=== PATIENT | female | born 1955 | race Caucasian/White ===

== ENCOUNTER 2018-10-16 05:55 | Inpatient (IN) ==
[2018-10-16] MEDS ORDERED: LIDOCAINE W/ SODIUM BICARB 0.5 ML SYR SUBD ONE (06:00)
[2018-10-16] MEDS ORDERED: Lactated Ringers 1,000 ML PRIMARY IV ONE ×2 (06:00→06:16)
[2018-10-16] MEDS ORDERED: Nasal Sanitizer POPSWAB ampule 3 AMP (Nozin) PREOP DOSE ENOS SCH (06:00)
[2018-10-16] MEDS ORDERED: Clindamycin 900mg (Premix) 900 MG/50 ML BAG IV ONE ×2 (06:00→06:16)
[2018-10-16] MEDS ORDERED: LIDOCAINE W/ SODIUM BICARB 0.5 ML SYR ONE (06:16)
[2018-10-16] MEDS ORDERED: Sodium Chloride 0.9% 0 ML IV ONE (06:16)
[2018-10-16] MEDS ORDERED: Vancomycin Inj 1gm vial ONE (06:16)
[2018-10-16] MEDS ORDERED: Sodium Chloride 0.9% 250 ML ONE ×2 (06:58→11:18)
[2018-10-16 07:39] LABS: BLOOD UREA NITROGEN 23 mg/dL (7-22); BUN/CREATININE RATIO 28.75 (6-20)
[2018-10-16] MEDS ORDERED: HYDROmorphone 2 MG/1 ML IVP PRN (07:40)
[2018-10-16] MEDS ORDERED: HYDROmorphone 2 MG/1 ML ONE ×3 (07:44→17:38)
[2018-10-16] MEDS: HYDROmorphone 2 MG/1 ML IVP PRN ×7 (07:45→17:54)
[2018-10-16] MEDS ORDERED: IPRATROPIUM/ALBUTEROL SULFATE 3 ML NEB NEB ONE (11:03)
[2018-10-16] MEDS ORDERED: fentaNYL Inj 250 MCG/5 ML VIAL ONE (11:12)
[2018-10-16] MEDS ORDERED: MIDAZOLAM 5 MG/1 ML ONE (11:12)
[2018-10-16] MEDS ORDERED: REMIFENTANIL HCL 2 MG VIAL IV ONE (11:13)
[2018-10-16] MEDS ORDERED: REMIFENTANIL 1 MG/1 ML IV ONE (11:13)
[2018-10-16] MEDS ORDERED: ROCURONIUM 10 MG/1 ML - 5 ML VIAL IVP ONE (11:13)
[2018-10-16] MEDS ORDERED: KETAMINE HCL 100 MG/2 ML SYRINGE IV ONE (11:14)
[2018-10-16] MEDS ORDERED: Sodium Chloride 0.9% vial 20 ML ONE (12:05)
[2018-10-16] MEDS ORDERED: BACITRACIN 50,000 UNIT VIAL IRRIG ONE (12:06)
[2018-10-16] MEDS ORDERED: BUPivacaine Inj 0.25% PF - 10ml vial ONE (12:12)
[2018-10-16] MEDS ORDERED: BUPIVACAINE 0.25% W/ EPI - 10 ML VIAL ONE (12:14)
[2018-10-16] MEDS ORDERED: ePHEDrine Inj 50 MG/ML AMP ONE (12:15)
[2018-10-16] MEDS ORDERED: PHENYLEPHRINE 10,000 MCG/1 ML VIAL ONE (12:22)
[2018-10-16] MEDS ORDERED: Propofol 1,000 MG/100 ML VIAL IV ONE (13:01)
[2018-10-16] MEDS ORDERED: Hetastarch 6% + NS 500 ML IV ONE (13:35)
--- NOTE | 2018-10-16 14:20 | CRNA.PROGR ---
Anesthesia Time - Procedure/Recovery Time Start Date: 10/16/18 End Date: 10/16/18 Anesthesia : Time In: 11:28 Anesthesia : Time Out: 16:57 Anesthesia : Total Time: 329 - Total Anesthesia Time Total Anesthesia Time (minutes): 329 - Other Weight: 71.214 kg Height: 5 ft 1 in Body Mass Index (BMI): 29.6 Physical Status: P2 (Tobacco) Anesthesia Type: General Anesthesia : ET (NIMS technique)
--- NOTE | 2018-10-16 17:02 | GEN.OPNOTE ---
Operative Note Surgery Date: 10/16/18 Preoperative Diagnosis: 1. Chronic neck pain. 2. Chronic right arm radicular symptoms. 3. Status post two remote anterior cervical discectomy and fusions with fusion of the C5-6 interspace. 4. Adjacent level degenerative disc disease at C4-5 and C6-7 with degenerative disc disease at C3-4, as well, with the degenerative disc disease at these levels being moderate in degree. 5. Marked facet arthropathy and hypertrophy at C2-3 on the left. 6. High-grade cervical central canal stenosis at C6-7 without cord compression. 7. Multilevel cervical neural foraminal stenosis. Postoperative Diagnosis: 1. Chronic neck pain. 2. Chronic right arm radicular symptoms. 3. Status post two remote anterior cervical discectomy and fusions with fusion of the C5-6 interspace. 4. Adjacent level degenerative disc disease at C4-5 and C6-7 with degenerative disc disease at C3-4, as well, with the degenerative disc disease at these levels being moderate in degree. 5. Marked facet arthropathy and hypertrophy at C2-3 on the left. 6. High-grade cervical central canal stenosis at C6-7 without cord compression. 7. Multilevel cervical neural foraminal stenosis. Procedure: 1.) C3-4 Anterior Cervical Discectomy with foraminotomies bilaterally and removal of the posterior longitudinal ligament for decompression of the cervical spinal canal and neuroforamin bilaterally. (CPT code: 89076). 2.) C4- 5 Anterior Cervical Discectomy with foraminotomies bilaterally and removal of the posterior longitudinal ligament for decompression of the cervical spinal canal and neuroforamin bilaterally. (CPT code: 58606). 3.) C6-7 Anterior Cervical Discectomy with foraminotomies bilaterally and removal of the posterior longitudinal ligament for decompression of the cervical spinal canal and neuroforamin bilaterally. (CPT code: 37395). 4.) Arthrodesis, anterior interbody technique, C3-4. (CPT code: 18506). 5.) Arthrodesis, anterior interbody technique, C4-5. (CPT code: 30941). 6.) Arthrodesis, anterior interbody technique, C6-7. (CPT code: 86823). 7.) Insertion of a 7mm x 14mm x 17mm 6-degree lordotic Tritanium C titanium anterior cervical cage into the C3-4 insterspace for fusion of the C3-4 interspace. (CPT code: 70471). 8.) Insertion of a 7mm x 14mm x 17mm 6-degree lordotic Tritanium C titanium anterior cervical cage into the C4-5 interspace for fusion of the C4-5 interspace. (CPT code: 17250). 9.) Insertion of a 7mm x 14mm x 17mm 6-degree lordotic Tritanium C titanium anterior cervical cage into the C6-7 interspace for fusion of the C6- 7 interspace. (CPT code: 07422). 10.) Anterior cervical plating, C3-C5. (CPT code: 77535). 11.) Anterior cervical plating, C6-C7. (CPT code: 55146). 12.) Use of 5cc of Cerapedics i-FACTOR peptide enhanced bone graft for filling of the anterior cervical cages (allograft). (CPT code: 31439). 13.) Use of the operative microscope for the microsurgical techniques used for the C3-4, C4-5, C6-7 discectomies. (CPT code: 80553). 14.) Use of intra-operative fluoroscopy for the localization of the correct surgical levels, confirmation of the final position of the intervertebral cages, and confirmation of final position of the anterior cervical hardware elements. 15.) Use of intra-operative neuromonitoring including free running EMG's, SSEP's, and MEP's. Surgeon: Will Castellon MD Donor Services Coordinator: NJ Tompkins Anesthesia Provider: Mariah Sibley CRNA Anesthesia Type: General Estimated Blood Loss (mL): 100 Fluids: See anesthesia record Pathology: None Indications: Ms. Page Strickland is a 63-year-old female status post a previous C5-6 anterior cervical discectomy and fusion performed in [place] in 1997 which was subsequently revised in 1998. She has had neck and right upper extremity symptoms for a while now. These have not improved with the passage of time or with nonoperative therapies. She had imaging studies that demonstrated adjacent level degenerative changes at C4-5 and C6-7 but with significant degenerative changes at C3-4, as well. We had discussed surgical treatment would entail a C3-4, C4-5, and C6-7 anterior cervical discectomy and fusion. Her chronic symptoms failed to durable improve with non-operative therapies. I recommended that she consider proceeding with a C3-4, C4-5, and C6-7 anterior cervical discectomy and fusion for durable improvement in her symptoms. She wished to proceed with surgical treatment. Findings: 1.) Cervical stenosis C6-7 2.) Cervical neuroforaminal stenosis, C3-4, C4-5, C6-7 Complications: None Operative Summary: Ms. Strickland was met in the preoperative area. Her surgical history and physical was performed earlier this morning in the pre-operative area. We reviewed the procedure to be performed and we were in agreement on the procedure to be performed and this matched what was written on the patient's consent form. Any questions that Ms. Strickland had were answered before she was taken back to the operating room suite. Ms. Strickland was brought back to the operating room suite. She was moved over onto the surgical bed in supine position. General anesthesia was induced by the anesthesia staff and she was intubated. A Lofton catheter was placed in her bladder for the procedure. She had pneumatic compression hose placed on her lower legs bilaterally. Her head was placed on a gel ring and rolled up surgical towels were placed in the intrascapular area and under her shoulders bilaterally. Her arms were gently tucked at her sides. All bony prominences were well padded. Her Lofton catheter was checked to be free from kinks. Her pneumatic compression hose were attached to a pneumatic compression devise. The C-arm fluoroscopy unit was used to help localize the skin incision for the approach to the intended surgical level. The skin was marked along the medial border of the sternocleidomastoid muscle with a skin marker. Ms. Strickland was prepped and draped in the usual and standard fashion. She was given 900 mg of Cleocin and 1 gram of vancomycin IV for perioperative antibiosis. A standard surgical timeout was performed identifying the correct patient, the correct procedure, and the correct equipment being available for the procedure. The intended skin incision was injected subcutaneously with quarter percent Marcaine with 1 in 200,000 epinephrine. The skin was incised with a 10 blade scalpel and all dermal and superficial bleeding points controlled with bipolar cautery. Dissection was continued down through the subcutaneous tissue to the level of the platysma muscle. The platysma muscle was incised with the Metzenbaum scissors in the direction of the skin incision. This allowed identification the medial border of the sternocleidomastoid muscle. Scar tissue from her previous C5-6 anterior cervical discectomy and fusion was encountered in the middle of the dissection. Further dissection identified the omohyoid muscle which was circumferentially dissected out, tagged with two 0-Silk suture and then cut with a Metzenbaum scissors with the muscle stumps retracted with snaps attached to the sutures. Continued dissection was performed medial to the sternocleidomastoid muscle in both a sharp and blunt fashion down to the pre-vertebral fascia. The carotid artery was palpated to be lateral to the dissection plane. Cloward hand-held retractors were used to retract and protect the soft tissues while the prevertebral fascia was dissected with a Kitner. Once the disc space became exposed a bent spinal needle was placed into the disc space and the level was localized as the C4-5 level, one of the intended surgical levels with lateral fluoroscopy. Continued dissection of the prevertebral fascia was performed exposing the C3, C4, C5, C6, and C7 vertebral bodies. The medial border of the longus coli muscle was dissected with Bovie cautery with an insulated tip turned down to a low setting from C3-C7 bilaterally. The hand-held Cloward retractors were then replaced with the Material Mixer self-retaining retractor system which was first placed at the C3-4 level to expose this level and protect the soft tissues at this level. A 12 mm distraction pin was placed into the C3 vertebral body and another was placed into the C4 vertebral body. The operative microscope was brought into the surgical field and used for microsurgical techniques used for the C3-4 discectomy. An annulotomy was performed with a 15 blade scalpel and disc material was removed with a pituitary rongeur. Additional disc and cartilaginous endplate was loosened in the disc space using a small straight curette with the fragments being removed with a pituitary rongeur. The high-speed listedplaces drill with a matchstick bit was used to perform arthrodesis/decortication of the C3 and C4 endplates preparing the endplates for fusion. The same drill with the same bit was used to drill away the prominent diffuse osteophytes along the posterior inferior aspect of the C3 vertebral body and the posterior superior aspect of C4 vertebral body as well as the uncovertebral joints bilaterally which were hypertrophied bilaterally. Foraminotomies were performed bilaterally with the same drill with same bit. A nerve hook was used to define the plane between the posterior longitudinal ligament and the dura. The posterior longitudinal ligament was completely rem mirtha with small Kerrison punches. The same instruments were used to extend the foraminotomies bilaterally that had been started with the high-speed drill with a matchstick bit. Excellent decompression of the spinal canal, neuroforamen, and exiting nerve roots was assured both by visual inspection as well as by palpation with a nerve hook underneath the vertebral bodies and out the neuroforamen bilaterally. The interspace was irrigated with bacitracin irrigation. FloSeal hemostatic agent was placed over all exposed dural elements. The interspace was sized the appropriate size anterior cervical cage. A 7 mm x 14 mm x 17 mm 6-degree lordotic Tritanium C titanium anterior cervical cage was selected and filled in the center with COCC BIO DBM Putty (allograft) and then inserted into the C3-4 interspace with the pilot control operator helper. The cage was gently countersunk with a bone tamp and mallet. The cage obtained good purchase between the C3 and C4 endplates. The final position of the cage was confirmed with lateral fluoroscopy. The C3 Mandare[place] distraction pin was removed and bony bleeding was controlled with FloSeal and a surgical madyson. The Material Mixer self-retaining retractor system was removed and placed across the C4-5 level for the exposure this level and the protection of the soft tissues at this level. The [place] distraction pin was placed into the C5 vertebral body. The operative microscope was used for this microsurgical techniques used for the C4-5 discectomy. An annulotomy was performed with a 15 blade scalpel and disc material was removed with a pituitary rongeur. Additional disc and cartilaginous endplate was loosened in the disc space with a small straight curette with the fragments being removed with a pituitary ronqeur. The high- speed [employer] Jose J drill with a matchstick bit was used to perform arthrodesis/decortication of the C4 and C5 endplates preparing the endplates for fusion. The same drill with the same bit was used to drill away the diffuse, prominent osteophytes along the posterior inferior aspect of the C4 vertebral body and the posterior superior aspect of the C5 vertebral body as well as to drill away the uncovertebral joint hypertrophy bilaterally. Foraminotomies were performed bilaterally with the same drill with the same bit. A nerve hook was used to define the plane between the posterior longitudinal ligament and the dura. The posterior longitudinal ligament was completely removed with small Kerrison punches. The same instruments were used to extend the foraminotomies bilaterally that had been started with the high-speed drill with a matchstick bit. Excellent decompression of the spinal canal, neuroforamen, and exiting nerve roots was assured both by visual inspection as well as by palpation with a nerve hook underneath the vertebral bodies and out the neuroforamen bilaterally. The interspace was irrigated with bacitracin irrigation. FloSeal hemostatic agent was placed over all exposed dural elements. The interspace was sized the appropriate size anterior cervical cage. A 7 mm x 14 mm x 17 mm 6-degree Tritanium C titanium anterior cervical cage was selected and filled in the center with COCC BIO DBM Putty (allograft) and then inserted into the C4-5 interspace with the pilot control operator helper. The cage was gently countersunk with a bone tamp and mallet. The cage obtained good purchase between the C4 and C5 endplates. The final position of the cage was confirmed with lateral fluoroscopy. The C4 Mandaree distraction pin was removed and bony bleeding was controlled with FloSeal and a surgical madyson. The Material Mixer self-retaining retractor system was removed and placed across the C6-7 level for the exposure this level and the protection of the soft tissues at this level. The Mand[place]e distraction pin was placed into the C7 vertebral body. The operative microscope was used for this microsurgical techniques used for the C6-7 discectomy. An annulotomy was performed with a 15 blade scalpel and disc material was removed with a pituitary rongeur. Additional disc and cartilaginous endplate was loosened in the disc space with a small straight curette with the fragments being removed with a pituitary ronqeur. The high- speed listedplaces drill with a matchstick bit was used to perform arthrodesis/decortication of the C6 and C7 endplates preparing the endplates for fusion. The same drill with the same bit was used to drill away the diffuse, prominent osteophytes along the posterior inferior aspect of the C6 vertebral body and the posterior superior aspect of the C7 vertebral body as well as to drill away the uncovertebral joint hypertrophy bilaterally. Foraminotomies were performed bilaterally with the same drill with the same bit. A nerve hook was used to define the plane between the posterior longitudinal ligament and the dura. The posterior longitudinal ligament was completely removed with small Kerrison punches. The same instruments were used to extend the foraminotomies bilaterally that had been started with the high-speed drill with a matchstick bit. Excellent decompression of the spinal canal, neuroforamen, and exiting nerve roots was assured both by visual inspection as well as by palpation with a nerve hook underneath the vertebral bodies and out the neuroforamen bilaterally. The interspace was irrigated with bacitracin irrigation. FloSeal hemostatic agent was placed over all exposed dural elements. The interspace was sized the appropriate size anterior cervical cage. A 7 mm x 14 mm x 17 mm 6-degree Tritanium C titanium anterior cervical cage was selected and filled in the center with COCC BIO DBM Putty (allograft) and then inserted into the C6-7 interspace with the pilot control operator helper. The cage was gently countersunk with a bone tamp and mallet. The cage obtained good purchase between the C6 and C7 endplates. The final position of the cage was confirmed with lateral fluoroscopy. The Mandaree distraction pins in the C6 and C7 vertebral bodies were removed. Bony bleeding was controlled FloSeal and surgical patties. The Material Mixer self- retaining retractor system was removed and placed in the center portion of the surgical dissection to provide the proper exposure needed for the instrumentation portion of the procedure. Any remaining C3, C4, C5, C6, and C7 anterior osteophytes were removed with the large Le[place]ell rongeur as well as with the high speed drill with the matchstick bit. The appropriate size anterior cervical plate were selected both by visual inspection as well as by lateral fluoroscopy. It was decided that because of t he C5-6 level being remotely fused with kyphotic angulation that a single anterior cervical plate would not fit across all of the surgical levels, so a two level plate was selected to plate from C3-C5 and a single level plate to plate the C6-7 level. A 2 level, 6 hole, 30 mm Radha Aviator titanium anterior cervical plate was selected and affixed to the C3 and C4 vertebral bodies using 4.0 mm x 14 mm variable angle titanium anterior cervical screws and to the C5 vertebral body using 4.0 mm x 14 mm fixed angle titanium screws. A 1 level, 4 hole, 14 mm [place] Aviator titanium anterior cervical plate was selected and affixed to the C6 and C7 vertebral bodies using 4.0 mm x 14 mm fixed angle titanium anterior cervical screws. All screws obtained good purchase in the vertebral body bone. The locking mechanism was then deployed at each level of each plate and visual inspection confirmed that the locking mechanism deployed across each of the screw heads at each level on each plate bilaterally. The Material Mixer self- retaining retractor system was removed from the surgical site. Final AP and lateral fluoroscopic images were obtained. The boswell of the dissection plane were inspected for any bleeding points. Any identified were coagulated with bipolar cautery. The surgical site was copiously irrigated with bacitracin irrigation allowing the irrigant to sit to again inspect for any bleeding points with none identified. A medium MATTHIAS drain was placed into the surgical site. The closure portion of the procedure was begun. The omohyoid muscle was re-approximated by the 0-Silk suture attached to the muscle stumps and by two interrupted 3-0 Vicryl suture. The platysmal muscle was reapproximated with 3-0 Vicryl suture in an interrupted fashion. The dermis and superficial subcutaneous tissue was reapproximated with 3-0 Vicryl suture in an inverted interrupted fashion. The final layer of closure was performed with 4-0 Monocryl in a running subcuticular fashion. The incision was cleansed with a bacitracin soaked sponge and dried with a sterile dry sponge. Steri-Strips were placed across the incision. The incision was dressed with a Covaderm dressing. The surgical drain was secured with suture. The drain site was dressed. All surgical drapes removed from Ms. Strickland. She was carefully moved over onto the PACU stretcher. She was awoken and extubated by the anesthesia staff. She was taken to the recovery room in stable condition. All surgical counts reported as correct by the scrub and circulating personnel. A Physician's Donor Services Coordinator, Ms. Chasity Bustamante PA-C, assisted with the procedure including the exposure and closure portions of the procedure. She also provided irrigation and suctioning throughout the procedure.
[2018-10-16] MEDS ORDERED: Ondansetron ODT Tab 8 MG TAB PO PRN (17:03)
[2018-10-16] MEDS ORDERED: LIDOCAINE W/ SODIUM BICARB 0.5 ML SYR SUBD PRN (17:03)
[2018-10-16] MEDS ORDERED: ATROPINE SULFATE 0.4 MG/1 ML VIAL IVP PRN (17:03)
[2018-10-16] MEDS ORDERED: ONDANSETRON 4 MG/2 ML VIAL IVP PRN (17:03)
[2018-10-16] MEDS ORDERED: fentaNYL Inj 100 MCG/2 ML VIAL IVP PRN (17:03)
--- NOTE | 2018-10-16 17:14 | CRNA.PROGR ---
Anesthesia Recovery Phase I - Post Anesthesia Evaluation Patient's Condition on Arrival in Phase I: Stable Patient's Condition on Arrival in Phase II: Stable (medicated) Pain Level: 10
--- NOTE | 2018-10-16 17:14 | CRNA.PROGR ---
Post Anesthesia Phase II - Post Anesthesia Phase II Patient Stable and Discharged To: Med/Surg Temperature: 97.4 F Pulse Rate: 70 Respiratory Rate: 16 Blood Pressure: 112/83 Pulse Ox: 100 Total Javan Score at Discharge: 9 Post Anesthesia Discharge Criteria Met: Yes
[2018-10-16] MEDS ORDERED: Lactated Ringers 1,000 ML PRIMARY IV SCH (17:15)
[2018-10-16] MEDS ORDERED: DIAZEPAM 5 MG TABLET PO ONE (17:18)
[2018-10-16] MEDS ORDERED: DIAZEPAM 5 MG TABLET ONE (17:27)
--- NOTE | 2018-10-16 18:01 | NEURO.PROG ---
Subjective Post Op Day: 0 Pain Management: PO Lofton Catheter: No Diet: Regular Ambulating: No Additional Details: Awake and alert in PACU. Surgical pain has been brought under control. Denies any new symptoms in her extremities. Moving all extremities well. PLAN: 1.) Transfer to med/surg floor. 2.) Continue post-operative antibiotics. 3.) Continue post-operative pain control. 4.) Advance diet. 5.) Mobilize. Objective : Data - Labs CBC and BMP: 10/16/18 07:22 - Vital Signs Vital Signs and I&O: Vital Signs - Last Taken Temperature 97.4 F 10/16/18 06:30 Pulse Rate 70 10/16/18 11:12 Respiratory Rate 16 10/16/18 11:12 Blood Pressure 112/83 10/16/18 06:30 Pulse Ox 100 10/16/18 11:12 Intake and Output (24hr x 4 totals) 10/14/18 10/15/18 10/16/18 10/17/18 05:59 05:59 05:59 05:59 Intake Total 2900 / 2900 Output Total 300 / 300 Balance 2600 / 2600
[2018-10-16] MEDS ORDERED: MAGNESIUM 400 MG/5 ML - 30 ML (MILK OF MAGNESIA) PO PRN (18:22)
[2018-10-16] MEDS ORDERED: Fleet Enema 133ml RECTAL PRN (18:22)
[2018-10-16] MEDS ORDERED: DOCUSATE 100 MG CAPSULE PO PRN (18:22)
[2018-10-16] MEDS ORDERED: Prochlorperazine Edisylate Inj 10mg/2ml vial IVP PRN (18:22)
[2018-10-16] MEDS ORDERED: BISACODYL 5 MG TABLET PO PRN (18:22)
[2018-10-16] MEDS ORDERED: MAGNESIUM CITRATE 296 ML SOLUTION PO PRN (18:22)
[2018-10-16] MEDS ORDERED: PROMETHAZINE 25 MG/1 ML VIAL IM PRN (18:22)
[2018-10-16] MEDS ORDERED: Vancomycin-PHA to Dose IV SCH (18:22)
[2018-10-16] MEDS: GABAPENTIN 300 MG CAPSULE PO SCH (20:43)
[2018-10-16] MEDS: oxyCODONE/APAP 7.5/325 Tab 1 TAB TAB PO PRN (20:43)
[2018-10-16] MEDS: Clindamycin 900mg (Premix) 900 MG/50 ML BAG IV SCH (20:43)
[2018-10-16] MEDS: DIAZEPAM 5 MG TABLET PO PRN (22:37)
[2018-10-16] MEDS: ONDANSETRON 4 MG/2 ML VIAL IVP PRN (22:40)
[2018-10-17] MEDS: oxyCODONE/APAP 7.5/325 Tab 1 TAB TAB PO PRN ×5 (01:12→23:30)
[2018-10-17] MEDS: Clindamycin 900mg (Premix) 900 MG/50 ML BAG IV SCH (03:58)
[2018-10-17] MEDS: oxyCODONE-ACETAMINOPHEN 5-325 TAB PO PRN ×2 (04:04→08:27)
[2018-10-17] MEDS: DIAZEPAM 5 MG TABLET PO PRN ×3 (04:13→18:37)
[2018-10-17] MEDS: ONDANSETRON 4 MG/2 ML VIAL IVP PRN ×2 (04:25→17:19)
[2018-10-17 04:49] LABS: BASOPHILS # (AUTO) 0.01 10*3/UL; BASOPHILS % (AUTO) 0.1 % (0-1); EOSINOPHILS # (AUTO) 0.06 10*3/UL; EOSINOPHILS % (AUTO) 0.7 % (0-8); Hematocrit [HCT] 31.3 % (37.0-47.0); Hemoglobin [HGB] 10.3 g/dL (12.0-16.0); LYMPHOCYTES # (AUTO) 1.16 10*3/uL; MEAN CORPUSCULAR HEMOGLOBIN 28.9 PG (27-31); MEAN CORPUSCULAR HGB CONC 32.9 g/dL (33-37); MEAN CORPUSCULAR VOLUME 87.7 FL (81-99); MEAN PLATELET VOLUME 10.1 FL (7.4-12.2); MONOCYTES # (AUTO) 0.42 10*3/UL (0.3-0.8); NEUTROPHILS # (AUTO) 6.71 10*3/UL; NEUTROPHILS % (AUTO) 80.2 % (50-80); RED BLOOD COUNT 3.57 10^6/uL (4.20-5.40)
[2018-10-17 04:58] LABS: BLOOD UREA NITROGEN 16 mg/dL (7-22); BUN/CREATININE RATIO 22.85 (6-20)
[2018-10-17 05:07] LABS: PLATELET MORPHOLOGY COMMENT NORMAL MORPHOLOGY (NORM); RBC MORPHOLOGY COMMENT NORMAL MORPHOLOGY (NORM); WBC MORPHOLOGY COMMENT NORMAL MORPHOLOGY (NORM)
[2018-10-17] MEDS: PANTOPRAZOLE 40 MG TABLET PO SCH (06:53)
--- NOTE | 2018-10-17 07:12 | NEURO.PROG ---
Subjective Pain Management: PO Lofton Catheter: No Diet: Regular Ambulating: Yes Additional Details: Ms Strickland is awake and alert. Up to the bathroom without difficulty. Incision dry and intact. Drainage 60 ml in 12 hours. Has complaint of some muscle spasm through the night. Plan is to mobilize this morning and discontinue her drain. I will visit with her later today to make a plan for discharge. Objective : Data - Labs CBC and BMP: 10/17/18 03:58 10/17/18 03:58 - Vital Signs Vital Signs and I&O: Vital Signs - Last Taken Temperature 97.5 F 10/17/18 03:46 Pulse Rate 95 10/17/18 03:46 Respiratory Rate 18 10/17/18 03:46 Blood Pressure 150/76 10/17/18 03:46 Pulse Ox 90 10/17/18 03:46 Intake and Output (24hr x 4 totals) 10/15/18 10/16/18 10/17/18 10/18/18 05:59 05:59 05:59 05:59 Intake Total 4565 / 4565 Output Total 1130 / 1130 Balance 3435 / 3435
[2018-10-17] MEDS: HYDROCHLOROTHIAZIDE 25 MG TABLET PO SCH (08:26)
[2018-10-17] MEDS: Insulin Glargine SoloStar Inj 100 UNIT/ML INSULN.PEN SUBCUT SCH (08:26)
[2018-10-17] MEDS: LISINOPRIL 20 MG TABLET PO SCH (08:27)
[2018-10-17] MEDS: GABAPENTIN 300 MG CAPSULE PO SCH ×3 (08:27→20:18)
[2018-10-17] MEDS: ATORVASTATIN 20 MG TABLET PO SCH (08:27)
[2018-10-17] MEDS: METFORMIN 750 MG PO SCH (08:39)
--- NOTE | 2018-10-17 11:55 | NEURO.PROG ---
Subjective Post Op Day: 1 Pain Management: PO Lofton Catheter: No Diet: Regular Ambulating: Yes Additional Details: Ms Strickland was reported by her nurse to have hypoxia of 79% on room air. She denies feeling short of breath and she has lung sounds throughout, but the hypoxia did not improve with use of her incentive spirometer. She has a history of 1/2ppd cigarette smoking and she reports today, a 1 year history of d ifficulty swallowing liquids. Dr. Castellon was notified and hospitalist was consulted. A Chest CTA was ordered per Dr. Goldman. Ms Strickland was told we needed to work up why her oxygen was so low before proceeding with discharge. Objective : Data - Labs CBC and BMP: 10/17/18 03:58 10/17/18 03:58 - Vital Signs Vital Signs and I&O: Vital Signs - Last Taken Temperature 97.4 F 10/17/18 11:47 Pulse Rate 95 10/17/18 11:47 Respiratory Rate 20 10/17/18 11:47 Blood Pressure 127/73 10/17/18 11:47 Pulse Ox 95 10/17/18 11:47 Intake and Output (24hr x 4 totals) 10/15/18 10/16/18 10/17/18 10/18/18 05:59 05:59 05:59 05:59 Intake Total 4565 / 4565 721 / 721 Output Total 1130 / 1130 330 / 330 Balance 3435 / 3435 391 / 391
[2018-10-17] MEDS ORDERED: Hold Metformin-See Instruction 1 EACH MIS PRN (12:24)
[2018-10-17] MEDS ORDERED: Levofloxacin (Premix) 750 MG/150 ML PIGGYBACK IV SCH (14:30)
--- NOTE | 2018-10-17 14:31 | DI ---
CT ANGIOGRAM OF THE CHEST, 10/17/2018 12:25 PM : Clinical History: Postoperative hypoxia on room air. Previous Exam: None at this facility. Technique: Scans from base of neck to lung bases with IV contrast. Bolus tracking protocol was used f or timing the injection. Non-MIPS and MIPS sagittal/coronal images generated. IV Contrast: 47 mL of Isovue 370 Base of Neck: Normal. Nodes: Normal axillary, supraclavicular, mediastinal, and hilar lymph nodes. Heart: Normal. No coronary artery calcifications. Aorta: Normal thoracic aorta. No aneurysm or dissection. Pulmonary Arteries: No pulmonary embolism or pulmonary embolism with infarction noted. There is pulmo nary arterial hypertension. Lungs: There is a left lower lobe infiltrate involving primarily the posterobasal and mediobasal segm ents with air bronchograms. This probably represents aspiration in view of the location. There is starla e atelectasis in the right posterior sulcus. Small blebs are present in the upper lobes indicating bu llous emphysema. Effusion(s): None. Nodules: None. Bony Structures: Normal visualized portions of ribs, sternum, scapulae, clavicles, and shoulders. Nor mal visualized portions of thoracic spine. Limited Upper Abdomen: Normal adrenal glands and spleen. Normal limited views of the liver. READIN. Negative CT pulmonary angiogram for pulmonary embolism or pulmonary embolism with infarction. The re is pulmonary arterial hypertension. 2. Left lower lobe pneumonia involving primarily the posterobasal and mediobasal segments and this i s consistent with aspiration pneumonia. 3. Bullous emphysema.
[2018-10-17] MEDS ORDERED: IPRATROPIUM/ALBUTEROL SULFATE 3 ML NEB NEB PRN (14:36)
--- NOTE | 2018-10-17 14:37 | CONSULT ---
Consult Note - Consult Requesting Physician: post op neurosurgery bridger for hypoxia Primary Care Provider: NONE NONE - History of Present Illness History of Present Illness: Is a very nice 64-year-old female who was admitted for elective C3-C4 discectomy by Dr. Castellon today's patient is postop day 1 was found to be hypoxic hospitalist was consult did the for evaluation. She is doing well denies chest pain a little shortness of breath she is a half a pack of cigarettes day smoker. Past Medical History Medical History: Diabetes, hypertension, hypercholesterolemia, emphysema on CT scan done today Surgical History: Neck surgery Tobacco Use: Current Every Day Smoker In the Past 12 Months, Have Used or Abuse Any of the Following Substance: None Review of Systems - Review of Systems All Systems: Reviewed & No Additional Complaints Except as Stated - Respiratory Respiratory: REPORTS: Cough - Cardiovascular Cardiovascular: DENIES: Negative System Review, Chest Pain, Edema, Syncope, Palpitations, Orthopnea, Paroxysmal Nocturnal Dyspnea, Other, See HPI - Gastrointestinal Gastrointestinal / Abdominal: DENIES: Negative System Review, Nausea, Vomiting, Diarrhea, Constipation, Abdominal Pain, Bloody Stool, Poor Appetite, Heartburn, Regurgitation, Bloating, Lactose Intolerance, Melena, Bright Red Blood per Rectum, Other, See HPI Medication / Allergies Home Medications: Home Medications Medication Instructions Recorded Confirmed Type atorvastatin 20 mg tablet 20 mg PO QDAY 06/06/18 10/16/18 History cyclobenzaprine 10 mg tablet 10 mg PO TID 06/06/18 10/15/18 History gabapentin 600 mg tablet 600 mg PO TID tab 06/06/18 10/15/18 History lisinopril 20 1 tab PO QDAY 06/06/18 10/15/18 History mg-hydrochlorothiazide 25 mg tablet metformin ER 750 mg 750 mg PO QPM 06/06/18 10/16/18 History tablet,extended release 24 hr ondansetron 4 mg disintegrating 4 mg PO BID-TID PRN 06/13/18 10/15/18 History tablet ondansetron 4 mg disintegrating 4 mg PO BID-TID PRN #30 tab 07/09/18 10/15/18 Rx tablet oxycodone-acetaminophen 5 mg-325 1 tab PO Q4-6H PRN #60 tab 10/01/18 10/15/18 Rx mg tablet Insulin Glargine,Hum.rec.anlog 10 unit SUBCUT DAILY 10/15/18 10/16/18 History [Lantus] Allergies/Adverse Reactions: Allergies Allergy/AdvReac Type Severity Reaction Status Date / Time Penicillins Allergy Severe Hives Verified 10/17/18 06:29 codeine AdvReac Mild Nausea and Verified 10/17/18 06:29 Vomiting Exam - Vitals Vital Signs: Vital Signs Temperature 97.4 F Temperature Source Temporal Artery Scan Pulse Rate [Apical] 100 Pulse Rate [Pulse Oximeter] 95 Pulse Rate 95 Respiratory Rate 20 Blood Pressure [Left Arm] 127/73 Blood Pressure 139/80 Pulse Ox 95 Oxygen Flow Rate 2 Oxygen Delivery Method Nasal Cannula Height 5 ft 1 in Weight 166 lb - General General Appearance: No Acute Distress, Cooperative - Respiratory Respiratory Exam: POSITIVE: Decreased Breath Sounds - Cardiovascular Cardiovascular Exam: POSITIVE: RRR, No Murmur, No Clicks, No Gallops, No Rubs, PMI Non-Displaced - GI/Abdominal GI/Abdominal Exam: POSITIVE: Normal Bowel Sounds, Non Tender, Non Distended, Soft, No Masses, No Hepatomegaly, No Splenomegaly, No Organomegaly - Extremities Extremities Exam: POSITIVE: No Clubbing Present, No Edema Present, No Cyanosis Present Results - Labs CBC and BMP: 10/17/18 03:58 10/17/18 03:58 Assessment and Plan - Patient Problems (1) Aspiration into lower respiratory tract Current Visit: Yes Status: Acute Comment: levaquin and flagyl all to pennicilin also has emphysema bullous emphysema on CAT scan patient is a smoker might add some steroids Code(s): T17.800A - Unspecified foreign body in other parts of respiratory tract causing asphyxiation, initial encounter (2) Diabetes 1.5, managed as type 1 Current Visit: No Status: Chronic Comment: Continue metformin Code(s): E10.9 - Type 1 diabetes mellitus without complications (3) High blood pressure Current Visit: No Status: Chronic Comment: Continue SIMONE inhibitor Code(s): I10 - Essential (primary) hypertension (4) Smoker Current Visit: No Status: Chronic Code(s): F17.200 - Nicotine dependence, unspecified, uncomplicated (5) Status post neck surgery, follow-up exam Current Visit: Yes Status: Acute Comment: Deferred to neurosurgical team for anticoagulations and postop instruc tions Code(s): Z09 - Encounter for follow-up examination after completed treatment for conditions other than malignant neoplasm
[2018-10-17] MEDS: NICOTINE 21 MG /DAY PATCH TRANSDERM SCH (14:53)
[2018-10-17] MEDS: metroNIDAZOLE 500mg (Premix) 500 MG/100 ML BAG IV SCH ×2 (15:01→23:27)
--- NOTE | 2018-10-17 16:32 | PT.PROG ---
Progress Note Progress Note: S. Patient stated she would like to go for a walk, she reports the back of her neck hurts. O. Patient ambulated 300 feet around the nurses station and was left at the edge of bed with alarm and call light. A. Patient tolerated ambulation fair, she required frequent verbal cues for safety. she is very impulsive and would continue to benefit from skilled therapy to increase strength and safety at this time. P. Continue POC.
--- NOTE | 2018-10-17 18:12 | CRNA.PROGR ---
Anesthesia Note - Progress Notes Anesthesia Progress Note: Awake in bed. Mentation clear and apropriate. Main complaint pain in back of neck. Had low room air spo2 earlier today. Reported to resolve with pulmonary toilet. Has been ambulating. Has a history of difficulty with swallowing. Vital Signs - Last Taken Temperature 97 F 10/17/18 16:51 Pulse Rate 93 10/17/18 16:51 Respiratory Rate 18 10/17/18 16:51 Blood Pressure 142/68 10/17/18 16:51 Pulse Ox 93 10/17/18 16:51 Some question of lower lobe pneumonia. She states she has a cough and painful chest prior to Surgery. Would have been nice if she reported that prior to anesthesia. No apparent anesthetic issues.
[2018-10-17] MEDS ORDERED: oxyCODONE-ACETAMINOPHEN 5-325 TAB PO PRN (19:35)
[2018-10-17] MEDS ORDERED: methylPREDNISolone 125 MG/2 ML VIAL IVP ONE (19:35)
[2018-10-17] MEDS: CYCLOBENZAPRINE 10 MG TABLET PO SCH (20:17)
[2018-10-18] MEDS: oxyCODONE/APAP 7.5/325 Tab 1 TAB TAB PO PRN (04:53)
[2018-10-18 05:24] LABS: BASOPHILS # (AUTO) 0.01 10*3/UL; BASOPHILS % (AUTO) 0.1 % (0-1); EOSINOPHILS # (AUTO) 0 10*3/UL; EOSINOPHILS % (AUTO) 0 % (0-8); Hematocrit [HCT] 36.1 % (37.0-47.0); LYMPHOCYTES # (AUTO) 0.46 10*3/uL; MEAN CORPUSCULAR HEMOGLOBIN 29.2 PG (27-31); MEAN CORPUSCULAR HGB CONC 33.2 g/dL (33-37); MEAN CORPUSCULAR VOLUME 87.8 FL (81-99); MEAN PLATELET VOLUME 9.8 FL (7.4-12.2); MONOCYTES # (AUTO) 0.11 10*3/UL (0.3-0.8); MONOCYTES % (AUTO) 0.9 % (5-15); RED BLOOD COUNT 4.11 10^6/uL (4.20-5.40)
[2018-10-18 05:44] LABS: BLOOD UREA NITROGEN 13 mg/dL (7-22); BUN/CREATININE RATIO 14.44 (6-20); SERUM ALBUMIN 3.7 g/dL (3.5-4.8)
[2018-10-18 05:49] LABS: PLATELET MORPHOLOGY COMMENT NORMAL MORPHOLOGY (NORM); RBC MORPHOLOGY COMMENT NORMAL MORPHOLOGY (NORM); WBC MORPHOLOGY COMMENT NORMAL MORPHOLOGY (NORM)
[2018-10-18 07:06] VITALS: RESP 12
[2018-10-18] MEDS: PANTOPRAZOLE 40 MG TABLET PO SCH (07:07)
[2018-10-18] MEDS: metroNIDAZOLE 500mg (Premix) 500 MG/100 ML BAG IV SCH (07:07)
--- NOTE | 2018-10-18 07:30 | NEURO.PROG ---
Subjective Post Op Day: 2 Pain Management: PO [place] Catheter: No Flatus: Yes Diet: Regular Ambulating: Yes Additional Details: Ms Strickland is awake and alert. She is ambulating with out difficulty. 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 Her incision is dry and intact. She does have some hoarseness which she says is unchanged from preop. Her oxygenation has improved to 93% on 1 liter of O2. Report noted from Dr. Acuna regarding lung consolidation consistent with probable aspiration pneumonia and now on antibiotics per Dr. Goldman. She was also noted to have a history of dysphagia and was seen by OT regarding using a thickener for fluids and the possible need for further referral on discharge. From a neuro surgery standpoint she is ready to discharge home. Plan is discharge per hospitalist when OK from a respiratory standpoint. She has been given post op incision care and instructions on use of her neck brace when up for the day. She has also been given a followup to see Dr. Castellon in the [facility] on Oct 24. Objective : Data - Labs CBC and BMP: 10/18/18 05:15 10/18/18 05:15 - Vital Signs Vital Signs and I&O: Vital Signs - Last Taken Temperature 97.4 F 10/18/18 06:50 Pulse Rate 90 10/18/18 07:00 Respiratory Rate 12 10/18/18 06:50 Blood Pressure 100/64 10/18/18 06:50 Pulse Ox 87 10/18/18 06:50 Intake and Output (24hr x 4 totals) 10/16/18 10/17/18 10/18/18 10/19/18 05:59 05:59 05:59 05:59 Intake Total 4565 / 4565 2001 Output Total 1130 / 1130 1954 / 1954 Balance 3435 / 3435 47 / 47
[2018-10-18] MEDS: Insulin Glargine SoloStar Inj 100 UNIT/ML INSULN.PEN SUBCUT SCH (08:22)
[2018-10-18] MEDS: NICOTINE 21 MG /DAY PATCH TRANSDERM SCH (08:22)
[2018-10-18] MEDS: ATORVASTATIN 20 MG TABLET PO SCH (08:23)
[2018-10-18] MEDS: CYCLOBENZAPRINE 10 MG TABLET PO SCH (08:23)
[2018-10-18] MEDS: GABAPENTIN 300 MG CAPSULE PO SCH (08:23)
[2018-10-18] MEDS: HYDROCHLOROTHIAZIDE 25 MG TABLET PO SCH (08:39)
[2018-10-18] MEDS: METFORMIN 750 MG PO SCH (08:40)
[2018-10-18] MEDS: LISINOPRIL 20 MG TABLET PO SCH (08:40)
[2018-10-18] MEDS ORDERED: Patch Removal PATCH TRANSDERM SCH (09:00)
--- NOTE | 2018-10-18 10:07 | DCSUMMARY ---
Hospitalization Summary Hospital Course: Final Discharge Diagnosis: Status post neck surgery Aspiration pneumonia Diabetes Diagnostic Data, Laboratory Data, and Procedures of Signifigance: Laboratory Results 10/18/18 10/18/18 05:15 05:15 WBC 11.79 H RBC 4.11 L Hgb 12.0 Hct 36.1 L MCV 87.8 MCH 29.2 MCHC 33.2 RDW Std Deviation 41.9 RDW Coeff of Emely 13.6 Plt Count 329 MPV 9.8 Immature Gran % (Auto) 0.1 Neut % (Auto) 95.0 H Lymph % (Auto) 3.9 L Gallia % (Auto) 0.9 L Eos % (Auto) 0 Baso % (Auto) 0.1 Immature Gran # (Auto) 0.01 Neut # (Auto) 11.20 Lymph # (Auto) 0.46 Gallia # (Auto) 0.11 L Eos # (Auto) 0 Baso # (Auto) 0.01 WBC Morphology Comment Normal morphology Plt Morphology Comment Normal morphology RBC Morph Comment Normal morphology Sodium 138 Potassium 4.5 Chloride 98 Carbon Dioxide 29 Anion Gap 11 BUN 13 Creatinine 0.9 Estimated GFR > 60 BUN/Creatinine Ratio 14.44 Glucose 292 H Calculated Osmolality 296.0 H Calcium 9.6 Total Bilirubin 0.6 AST 15 ALT 28 Alkaline Phosphatase 88 Total Protein 5.6 L Albumin 3.7 Globulin 1.9 L Albumin/Globulin Ratio 1.90 History and Physical pertinent to Admission: Course of Hospitalization: Is a very nice 63-year-old female who was admitted to the hospital for neck surgery see specifics for her neck surgery on Dr. Castellon's operative note and progress notes. Hospitalist service was called for hypoxia while she was getting ready to go home yesterday CT scan revealed the aspiration pneumonia. Patient was given Levaquin and Flagyl for allergies to penicillin she did receive 1 dose of steroids as well she does have emphysema on her CAT scan she is a daily smoker as well. Patient is wanting to go home and does not want any further workup at present time in regards to swallow study. I highly recommend that she stop smoking also to follow-up with her primary care physician for possible swallow evaluation and COPD evaluation with the PFTs I did call in a prescription for Avelox at her pharmacy in [place]. We had the respiratory therapy ambulate her around the hallway she is maintaining her sats and 93% on room air. She has no other questions and is very eager to be discharged home postop orders anticoagulation and PT OT orders have follow-ups are arranged by the neurosurgery team in regards to her operation. On the date of discharge, the patient was examined: Gen.: No acute distress, alert, nontoxic Heart: Regular rate and rhythm, no murmurs, clicks, gallops, or rubs Lungs: Clear to auscultation bilaterally, breathing is nonlabored Abdomen/GI: Normal tones on auscultation, soft, nontender, nondistended Musculoskeletal/extremities: No clubbing, cyanosis, or edema Vitals reviewed and are listed below Vital Signs (24 hrs) 10/17/18 11:01 10/17/18 11:47 10/17/18 16:51 Temperature 97.4 F 97 F Pulse Rate Pulse Rate [Apical] Pulse Rate [Pulse Oximeter] 95 93 Respiratory Rate 20 18 Blood Pressure [Left Arm] 127/73 142/68 Pulse Ox 92 95 93 10/17/18 19:00 10/17/18 21:00 10/18/18 00:39 Temperature 97.7 F 98.3 F Pulse Rate Pulse Rate [Apical] 90 Pulse Rate [Pulse Oximeter] 107 H 106 H Respiratory Rate 20 18 Blood Pressure [Left Arm] 139/71 100/52 Pulse Ox 94 96 10/18/18 05:00 10/18/18 06:18 10/18/18 06:19 Temperature 97.7 F Pulse Rate 94 94 Pulse Rate [Apical] Pulse Rate [Pulse Oximeter] 104 H Respiratory Rate 20 18 18 Blood Pressure [Left Arm] 122/68 Pulse Ox 92 94 10/18/18 06:50 10/18/18 07:00 Temperature 97.4 F Pulse Rate Pulse Rate [Apical] Pulse Rate [Pulse Oximeter] 90 90 Respiratory Rate 12 Blood Pressure [Left Arm] 100/64 Pulse Ox 87 Assessment and Plan: 1. As per discharge assessments above 2. Disposition: 3. Condition on discharge, stable and improved. 4. Diet: regular diet 5. Activities: resume normal activities 6. Follow-Up: 1. PCP in [place] 2. Dr. Castellon as scheduled 7. Medications at the Time of Discharge: Home Medications Medication Instructions Recorded Confirmed Type atorvastatin 20 mg tablet 20 mg PO QDAY 06/06/18 10/16/18 History cyclobenzaprine 10 mg tablet 10 mg PO TID 06/06/18 10/15/18 History gabapentin 600 mg tablet 600 mg PO TID tab 06/06/18 10/15/18 History lisinopril 20 1 tab PO QDAY 06/06/18 10/15/18 History mg-hydrochlorothiazide 25 mg tablet metformin ER 750 mg 750 mg PO QPM 06/06/18 10/16/18 History tablet,extended release 24 hr ondansetron 4 mg disintegrating 4 mg PO BID-TID PRN 06/13/18 10/15/18 History tablet oxycodone-acetaminophen 5 mg-325 1 tab PO Q4-6H PRN #60 tab 10/01/18 10/15/18 Rx mg tablet Insulin Glargine,Hum.rec.anlog 10 unit SUBCUT DAILY 10/15/18 10/16/18 History [Lantus] Moxifloxacin in NaCl (Iso-Osm) 400 mg PO DAILY #7 ml 10/18/18 Rx [Avelox Iv 400 Mg/250 Ml] 8. Time, care, counseling and coordination of care for this discharge is greater than 30 minutes. Exam - Vitals Vital Signs: Vital Signs Temperature 97.4 F Temperature Source Oral Pulse Rate [Apical] 90 Pulse Rate [Pulse Oximeter] 90 Pulse Rate 94 Respiratory Rate 12 Blood Pressure [Left Arm] 100/64 Blood Pressure 139/80 Pulse Ox 87 Oxygen Flow Rate 1 Oxygen Delivery Method Nasal Cannula Height 5 ft 1 in Weight 157 lb Patient Problems - Patient Problem List (1) Aspiration into lower respiratory tract Current Visit: No Status: Acute Code(s): T17.800A - Unspecified foreign body in other parts of respiratory tract causing asphyxiation, initial encounter Category: Medical (2) Diabetes 1.5, managed as type 1 Current Visit: No Status: Chronic Code(s): E10.9 - Type 1 diabetes mellitus without complications Category: Medical (3) High blood pressure Current Visit: No Status: Chronic Code(s): I10 - Essential (primary) hypertension Category: Medical (4) Smoker Current Visit: No Status: Chronic Code(s): F17.200 - Nicotine dependence, unspecified, uncomplicated Category: Medical (5) Status post neck surgery, follow-up exam Current Visit: No Status: Acute Code(s): Z09 - Encounter for follow-up examination after completed treatment for conditions other than malignant neoplasm Category: Medical
[2018-10-18] MEDS: DIAZEPAM 5 MG TABLET PO PRN (11:06)
--- NOTE | 2018-10-18 11:19 | OTI REPORT ---
Thank you for the referral of Page Strickland. She was seen on 10/17/18 for an occupational therapy inpatient evaluation status post cervical fusion. SUBJECTIVE: The patient is a 63-year-old female who is being seen secondary to a cervical fusion. She has been reporting that she has had a year worth of swallowing difficulties. The patient was eating breakfast when the therapy arrived. She reported that she was having a lot of difficulty swallowing and she was choking and coughing on her thin liquids. The patient reports that she has a LifeAlert secondary to the fact that food can get stuck so badly, she stops breathing and feels like she has food stuck in her throat. The patient has an inhaler that sometimes helps, but overall the patient struggles a lot with swallowing. The patient has a lot of fear that she will choke. The patient did have a semi- formal evaluation done for swallowing secondary to her concerns. The patient will be living by herself upon discharge. PAST MEDICAL HISTORY: Past medical history can be found in the patient's medical record. OBJECTIVE FINDINGS: Pre-Swallow Assessment: Facial symmetry: The patient did demonstrate facial symmetry. Nutrition and intake method: Usually thin liquids and regular diet. Respiratory status: The patient is on two liters of oxygen; however, she typically does not wear oxygen at home. We did do some activities without oxygen and her saturation dropped down to 78%. When just sitting there, her saturation drops between 84-86% without oxygen. With two liters on, she remains in the 90s. Secretions: The patient is able to handle her own secretions. Dentition: The patient does have dentures. Lip control: The patient has good lip control. Lingual function: The patient has good lingual function. Sensation: The patient has decent sensation of the buccal, labial, and lingual areas. Gag reflex: The patient has a hypo-active gag reflex. General observations: The patient just had a cervical fusion. She has very weak laryngeal elevation, probably only 25-50%. Swallow Assessment: Today the patient was eating eggs and a pancake and drinking thin liquids when the therapist arrived. When drinking thin liquid, the patient had a delayed cough every single time. We attempted nectar thickened liquid; the patient stated that it went down much better. She did not feel like it was going down the wrong tube and she was able to drink this without difficulty or concerns. The pancakes were getting stuck. We talked to the patient about effortful swallows. With her history as well as the new neck surgery, the therapist did provide patient and family members some worksheets about a mechanical soft diet; what to avoid and what would be safe for her to eat. Activities of daily living: Dressing self will be difficult with the cervical brace on. The patient needed some assistance to grasp items off of the floor. She was issued a it senior analyst for safety so that she does not bend over and hurt her neck. The patient was also issued a bath sponge to wash her back and legs. The patient will also need a shower chair. ASSESSMENT: The patient is demonstrating a moderate amount of dysphagia. It is recommended that the patient be placed on nectar thickened liquids and a mechanical soft diet. The patient was educated in effortful swallows. The patient will benefit from outpatient swallow strengthening and to learn compensatory strategies for improved safety with her swallow. If she continues to work on her swallow strength, she may be able to get off of the nectar thickened liquids. The patient reports that the nectar thickened liquids are going down much smoother and she is not coughing compared to the thin liquids. The patient would also benefit from the it senior analyst and bath sponge to increase her independence and safety at home. Problem List The patient's oxygen is dropping on room air Swallowing difficulties TREATMENT PLAN: Patient will be seen B.I.D during the week and one time per day over the weekend as an inpatient to address the above goals and objectives. INITIAL TREATMENT: Treatment today consisted of the initial evaluation. The patient was issued two cans of thick-it and instructed how to make nectar thickened liquids. The patient also needs to modify her diet. The patient also reports that her knees give out, increasing her risk of falling. With the neck brace and oxygen tubing, it is more than likely not safe for the patient to return home unless she gets her oxygen levels up. ELVIAD
--- NOTE | 2018-10-18 11:24 | OT PM DAY ---
Diagnosis : Cervical Fusion/Swallowing Difficulty PM - Occupational Therapy S: The patient's family was present during the session today. O: Today we reviewed how to make the patient's mechanical soft meals as well as nectar thickened liquids. We had the patient participate in effortful swallows and Kassie maneuvers. The patient was issued a shower chair with a back for increased safety within the shower secondary to her knees giving out frequently per her report. A: The patient will benefit from shower chair to decrease falls in shower secondary to knee weakness. The patient and her caregiver will benefit from continued education with her swallow. The patient would benefit from outpatient therapy for swallow strengthening. P: Continue seeing patient BID during the week and one time per day over the weekend until discharge. MTDD
--- NOTE | 2018-10-18 11:58 | PT.PROG ---
Progress Note Progress Note: S. Patient stated she feels ready to go home. O. Patient ambulated 150 feet around the nurses station then ascended and descended 4 stairs and was returned to her room. A. Patient tolerated ambulation and stair training well with no pain or problems. P. Patient has met all goals at this time.
[2018-10-18 12:01] VITALS: BP 123/60; TEMP 98.1; O2SAT 93
--- NOTE | 2018-10-18 12:23 | PTI REPORT ---
Thank you for the referral of Page Strickland. She was seen on 10/17/18 for an inpatient evaluation status post C3-C7 cervical fusion. SUBJECTIVE: The patient is a 63-year-old female who underwent a cervical fusion yesterday. The patient states that she is doing fair this morning. She does complain of pain and soreness of her cervical spine and does still have her drain in place. The patient was eating breakfast upon PT arrival. She did state that she was having some issues with swallowing, which has been a chronic problem, so prior to our PT evaluation, we did get an OT in the room with the patient to assess swallowing and perform their evaluation. Once that was completed, PT stepped back in to finish evaluation. The patient states that she is from [place], [place]. She states that she lives alone in a senior housing apartment. She reports that there are no stairs. She primarily uses a four wheeled walker to get around due to arthritis and two bad knees. She states that she has had a few falls over the past year. She states that she has a [id number] in town that comes over daily to help her with cooking, cleaning, and bathing. PAST MEDICAL HISTORY: Past medical history can be found in the patient's medical record. OBJECTIVE FINDINGS: General observations: The patient was alert and oriented to setting upon PT arrival. Bed mobility: The patient was able to transfer from supine to seated edge of bed and demonstrated good seated edge of bed balance. The patient was instructed in cervical precautions including maintaining range of motion but avoiding end ranges along with lifting precaution. Transfers: The patient was instructed on how to properly put on the Mcdade cervical collar and that was placed on the patient along with a gait belt before she performed a seated to stand transfer. The patient demonstrated fair standing balance and required hand hold assist x2 in the walker and also contact guard assist for safety. The patient then transferred to the recliner chair. Ambulation: The patient was able to ambulate x150 feet with front wheeled walker around the nurse's station. Oxygen: The patient's oxygen saturation was checked following ambulation and she was at 84%. The patient was instructed in breathing techniques and after two minutes was able to bring her oxygen saturation back up to 90%. The patient states that she tends to hold her breath when she is in pain and that may be part of the reason that her oxygen saturation was lower. The therapist did discuss this with nursing as this is a safety concern for the patient to return back home, especially since she lives by herself and if she is dropping that low with her oxygen, it may need to be further addressed to improve her overall safety. ASSESSMENT: The patient has fair rehab potential secondary to her age and past medical history. She has had a few different surgeries on her cervical spine. She reports that she had two surgeries back in 1997 and 1998 as well. Short-Term Goals: To be met by discharge from inpatient: Patient will be able to transfer from bed to stand safely and independently. Patient will be able to don and doff her Mcdade cervical collar independently and safely. Patient will be able to ambulate at least 150 feet with walker safely and independently. Long-Term Goals: To be met following discharge from inpatient: Patient may be seen by outpatient physical therapy if deemed necessary by her surgeon. TREATMENT PLAN: Patient will be seen B.I.D during the week and one time per day over the weekend as an inpatient to address the above goals and objectives. INITIAL TREATMENT: Treatment today consisted of the initial evaluation followed by one unit of functional activity. Following treatment the patient was left in her recliner with chair alarm set and call light within reach. MTDBryson
[2018-10-18] MEDS: oxyCODONE-ACETAMINOPHEN 5-325 TAB PO PRN (13:26)
--- NOTE | 2018-10-21 12:10 | OT AM DAY ---
Diagnosis : Cervical Fusion AM - Occupational Therapy S: The patient reports she is doing much better today. She states the thickened liquids are definitely helping her with her swallowing abilities and she isn't coughing or choking nearly as much as she was. She was diagnosed with aspiration pneumonia and this is more than likely the cause. O: Today we reviewed swallow exercises and gave her some new exercises. All of the exercises combined included the effortful swallows, Tata maneuvers, and Kassie maneuvers. She was sent with two cans of thickener for home and was asked to continue with this until she gets further treatment from a swallow specialist in [place]. A: It is highly recommended that the patient continue with nectar thickened liquids and a mechanical soft diet at home. She also needs to follow up in a month to six weeks with a therapist that is certified in vital-stim and/or swallow strengthening exercises in order to reassess her swallowing abilities. Hopefully at some point she can get back on thin liquids if she continues with the swallow exercises. P: Patient will be discharged from OT at this time. TINO
== END 2018-10-18 13:50 | disposition home or self-care (01) | DRG 453 ==
LOC: OPS 05:55 → MED/SURG 18:09
PROVIDERS: ADMIT Neurological Surgery; ATTEND Neurological Surgery